=== PATIENT | male | born 1995 ===

== ENCOUNTER 2024-06-17 11:22 | Emergency (ER) | payer SELFPAY ==
[2024-06-17] MEDS: traMADol 50 MG Tab PO STA (13:00)
== END 2024-06-17 14:34 | disposition home or self-care (01) ==
LOC: MW.ED 11:22
DX: S39.012A Strain of muscle, fascia and tendon of lower back, initial encounter (principal); F17.210 Nicotine dependence, cigarettes, uncomplicated; Z88.2 Allergy status to sulfonamides; Z75.8 Other problems related to medical facilities and other health care; X50.1XXA Overexertion from prolonged static or awkward postures, initial encounter
CPT/HCPCS: 72100; 99283; A9270